=== PATIENT | female | born 1975 | race Caucasian/White ===

== ENCOUNTER 2021-04-05 00:37 | Emergency (ER) | payer SELFPAY ==
--- NOTE | 2021-04-05 02:36 | ER ---
Nurse's Notes [facility] Tamia Name: Nikki Sargent Age: 46 yrs Sex: Female : 1975 Arrival Date: 04/05/2021 Time: 00:42 Bed 8 Private MD: Diagnosis: Sprain of ligaments of lumbar spine Presentation: 04/05 01:39 Chief complaint: Patient states: she has been having right hip pain x 1 month denies bb injury states pain radiates down leg and across back to other hip and is continuous. Coronavirus screen: At this time, the client does not indicate any symptoms associated with coronavirus-19. Ebola Screen: No symptoms or risks identified at this time. Initial Sepsis Screen: Does the patient meet any 2 criteria? No. Patient's initial sepsis screen is negative. Does the patient have a suspected source of infection? No. Patient's initial sepsis screen is negative. Risk Assessment: Do you want to hurt yourself or someone else? Patient reports no desire to harm self or others. Onset of symptoms was February 2021. 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 - Social history:: Smoking status: Patient denies any tobacco usage or history of. Patient uses street drugs, marijuana. Screenin:15 Abuse screen: Denies threats or abuse. Nutritional screening: No deficits noted. jb4 Tuberculosis screening: No symptoms or risk factors identified. Fall Risk None identified. Assessment: 01:15 General: Appears in no apparent distress. uncomfortable, Behavior is calm, cooperative, jb4 appropriate for age. Pain: Complains of pain in low back area Pain does not radiate. Pain currently is 5 out of 10 on a pain scale. Neuro: Level of Consciousness is awake, alert, obeys commands, Oriented to person, place, time, situation. Cardiovascular: Patient's skin is warm and dry. Respiratory: Airway is patent Respiratory effort is even, unlabored, Respiratory pattern is regular, symmetrical. GI: No signs and/or symptoms were reported involving the gastrointestinal system. : No signs and/or symptoms were reported regarding the genitourinary system. EENT: No signs and/or symptoms were reported regarding the EENT system. Derm: Skin is intact, Skin is pink, warm \T\ dry. Musculoskeletal: Circulation, motion, and sensation intact. Range of motion: intact in all extremities. 02:15 Reassessment: Patient appears in no apparent distress at this time. Patient and/or jb4 family updated on plan of care and expected duration. Pain level reassessed. Patient is alert, oriented x 3, equal unlabored respirations, skin warm/dry/pink. 03:22 Reassessment: Patient appears in no apparent distress at this time. Patient and/or jb4 family updated on plan of care and expected duration. Pain level reassessed. Patient is alert, oriented x 3, equal unlabored respirations, skin warm/dry/pink. Vital Signs: 01:39 BP 120 / 86; Pulse 57; Resp 16 S; Temp 98.1(O); Pulse Ox 100% on R/A; Weight 88 kg (R); bb Height 5 ft. 8 in. (172.72 cm) (R); Pain 5/10; 02:30 BP 135 / 84; Pulse 59; Resp 16; Pulse Ox 98% on R/A; jb4 01:39 Body Mass Index 29.50 (88.00 kg, 172.72 cm) bb ED Course: 00:42 Patient arrived in ED. cf2 01:15 Patient has correct armband on for positive identification. Bed in low position. Call jb4 light in reach. Side rails up X 1. Pulse ox on. NIBP on. 01:18 Rashid Jarquin MD is Attending Physician. tw4 01:36 Julio Cesar Molina RN is Primary Nurse. jb4 01:40 Triage completed. bb 01:42 Arm band placed on Patient placed in an exam room, on a stretcher, on pulse oximetry. bb 03:30 No provider procedures requiring assistance completed. Patient did not have IV access jb4 during this emergency room visit. Administered Medications: 03:20 Drug: TORadol (ketorolac) 60 mg Route: IM; Site: left gluteus; jb4 03:30 Follow up: Response: No adverse reaction; Marked relief of symptoms jb4 03:20 Drug: Flexeril (cyclobenzaprine) 10 mg Route: PO; jb4 03:30 Follow up: Response: Medication administered at discharge. jb4 03:28 Drug: traMADol 50 mg Route: PO; jb4 03:30 Follow up: Response: Medication administered at discharge.; RASS: Alert and Calm (0) [employer] [facility] [employer] Outcome: 02:35 Discharge ordered by . [facility] 03:30 Discharged to home via wheelchair, with family. jb4 03:30 Condition: stable 03:30 Discharge instructions given to patient, Instructed on discharge instructions, follow up and referral plans. medication usage, Demonstrated understanding of instructions, follow-up care, medications, Prescriptions given X 2. 03:35 Patient left the ED. mw2 Signatures: Maryse Huff RN Julio Cesar Chambers RN RN [employer] [facility] Rashid Jarquin MD MD [facility] Ashley Becerra 2 Lester Tesfaye 2
--- NOTE | 2021-04-05 02:36 | EDPHYS ---
Physician Documentation [facility] Tam[place] Name: Nikki Sargent Age: 46 yrs Sex: Female : 1975 Arrival Date: 04/05/2021 Time: 00:42 Bed 8 Private MD: ED Physician Rashid Jarquin HPI: 04/05 05:08 This 46 yrs old Female presents to ER via Ambulatory with complaints of Hip tw4 Pain, Back Pain. 05:08 The patient presents with pain and decreased range of motion. The symptoms are located tw4 in the right low back. Onset: The symptoms/episode began/occurred 3 week(s) ago. The pain does not radiate. Associated signs and symptoms: The patient has no apparent associated signs or symptoms. The patient has not experienced similar symptoms in the past. 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 - Social history:: Smoking status: Patient denies any tobacco usage or history of. Patient uses street drugs, marijuana. ROS: 05:08 Constitutional: Negative for fever, chills, and weight loss, Eyes: Negative for injury, tw4 pain, redness, and discharge, Cardiovascular: Negative for chest pain, palpitations, and edema, Respiratory: Negative for shortness of breath, cough, wheezing, and pleuritic chest pain, Abdomen/GI: Negative for abdominal pain, nausea, vomiting, diarrhea, and constipation. 05:08 Back: Positive for pain at rest, pain with movement. Exam: 05:08 Constitutional: This is a well developed, well nourished patient who is awake, alert, tw4 and in no acute distress. Head/Face: Normocephalic, atraumatic. Eyes: Pupils equal round and reactive to light, extra-ocular motions intact. Lids and lashes normal. Conjunctiva and sclera are non-icteric and not injected. Cornea within normal limits. Periorbital areas with no swelling, redness, or edema. Chest/axilla: Normal chest wall appearance and motion. Nontender with no deformity. No lesions are appreciated. Cardiovascular: Regular rate and rhythm with a normal S1 and S2. No gallops, murmurs, or rubs. Normal PMI, no JVD. No pulse deficits. Respiratory: Lungs have equal breath sounds bilaterally, clear to auscultation and percussion. No rales, rhonchi or wheezes noted. No increased work of breathing, no retractions or nasal flaring. Abdomen/GI: Soft, non-tender, with normal bowel sounds. No distension or tympany. No guarding or rebound. No evidence of tenderness throughout. 05:08 MS/ Extremity: Pulses equal, no cyanosis. Neurovascular intact. Full, normal range of motion. Neuro: Awake and alert, GCS 15, oriented to person, place, time, and situation. Cranial nerves II-XII grossly intact. Motor strength 5/5 in all extremities. Sensory grossly intact. Cerebellar exam normal. Normal gait. 05:08 Back: pain, that is mild, ROM is decreased, normal spinal alignment noted, muscle spasm, is appreciated in the right low back. Vital Signs: 01:39 BP 120 / 86; Pulse 57; Resp 16 S; Temp 98.1(O); Pulse Ox 100% on R/A; Weight 88 kg (R); bb Height 5 ft. 8 in. (172.72 cm) (R); Pain 5/10; 02:30 BP 135 / 84; Pulse 59; Resp 16; Pulse Ox 98% on R/A; jb4 01:39 Body Mass Index 29.50 (88.00 kg, 172.72 cm) bb MDM: 01:18 Patient medically screened. tw4 05:12 Data reviewed: vital signs, nurses notes. Data interpreted: Pulse oximetry: tw4 Interpretation: normal. Counseling: I had a detailed discussion with the patient and/or guardian regarding: the historical points, exam findings, and any diagnostic results supporting the discharge/admit diagnosis. Special discussion: I discussed with the patient/guardian in detail that at this point there is no indication for admission to the hospital. It is understood, however, that if the symptoms persist or worsen the patient needs to return immediately for re-evaluation. Administered Medications: 03:20 Drug: TORadol (ketorolac) 60 mg Route: IM; Site: left gluteus; jb4 03:30 Follow up: Response: No adverse reaction; Marked relief of symptoms jb4 03:20 Drug: Flexeril (cyclobenzaprine) 10 mg Route: PO; jb4 03:30 Follow up: Response: Medication administered at discharge. jb4 03:28 Drug: traMADol 50 mg Route: PO; jb4 03:30 Follow up: Response: Medication administered at discharge.; RASS: Alert and Calm (0) jb4 Disposition: 04/05/21 02:35 Discharged to Home. Impression: Sprain of ligaments of lumbar spine. - Condition is Stable. - Discharge Instructions: Back Pain, Adult. - Prescriptions for Ibuprofen 800 mg Oral Tablet - take 1 tablet by ORAL route every 8 hours As needed take with food; 30 tablet. Cyclobenzaprine 10 mg Oral Tablet - take 1 tablet by ORAL route every 8 hours As needed; 30 tablet. - Medication Reconciliation Form, Thank You Letter, Antibiotic Education, Prescription Opioid Use form. - Follow up: Private Physician; When: Upon discharge from the Emergency Department; Reason: Recheck today's complaints, Continuance of care, Re-evaluation by your physician. - Problem is new. - Symptoms have improved. Signatures: Maryse Huff RN RN Julio Cesar Villa RN RN jb4 Rashid Jarquin MD MD tw4 Ashley Becerra mw2 Corrections: (The following items were deleted from the chart) 03:35 02:35 04/05/2021 02:35 Discharged to Home. Impression: Sprain of ligaments of lumbar mw2 spine. Condition is Stable. Forms are Medication Reconciliation Form, Thank You Letter, Antibiotic Education, Prescription Opioid Use. Follow up: Private Physician; When: Upon discharge from the Emergency Department; Reason: Recheck today's complaints, Continuance of care, Re-evaluation by your physician. Problem is new. Symptoms have improved. tw4
[2021-04-05] MEDS ORDERED: CYCLOBENZAPRINE 10 MG TAB ONE (03:26)
[2021-04-05] MEDS ORDERED: KETOROLAC 30 MG/ML INJ ONE (03:26)
[2021-04-05] MEDS ORDERED: TRAMADOL HCL 50 MG TAB ONE (03:46)
[2021-04-05 03:48] VITALS: BP 135/84; O2SAT 98
[2021-04-05 03:49] VITALS: TEMP 98.1
== END 2021-04-05 03:35 | disposition home or self-care (01) ==
LOC: ER 00:37
DX: S33.5XXA Sprain of ligaments of lumbar spine, initial encounter (principal); X58.XXXA Exposure to other specified factors, initial encounter
CPT/HCPCS: 96372; 99283